=== PATIENT | male | born 1980 | race Two or more races ===

== ENCOUNTER 2018-12-29 19:54 | Emergency (ER) | payer OTHER ==
[~2018-12-29] VITALS: Ht 170.2 cm; Wt 72.6 kg
--- NOTE | 2018-12-29 19:57 | NUR ---
ED Nurse Note: pt brought in by [employer] for medical clearance, pt states he doesn't have any pain at this time, vss, resp even and unlabored on RA, will cont monitor.
[2018-12-29 19:59] VITALS: BP 113/67
--- NOTE | 2018-12-29 20:06 | NUR ---
ED Nurse Note: pt reports he initially had pain in wrists from handcuff. mild reddened area noted but no open wound, skin intact.
[2018-12-29] MEDS ORDERED: IBUPROFEN600 MG ORAL (20:16)
[2018-12-29 21:15] VITALS: BP 115/76
--- NOTE | 2018-12-29 21:15 | NUR ---
ED Nurse Note: pt cleared to be d/c per ERMD, pt discharge and aftercare instruction provided w/ prescription, pt education done via discussion and handout, pt advised to follow up with [facility] or return to ed if changes in condition, vss, ambulatory w/ steady gait, left w/ all belongings accompanied by [employer].
--- NOTE | 2018-12-29 21:29 | Emergency Room Report ---
History of Present Illness General Chief Complaint: Medical Clearance Source: Patient, EMS Present Illness HPI Patient is a 38-year-old male presented after increased bilateral upper extremity pain. Patient reports having increased pain to the both wrist as well as to the right shoulder. Patient had reportedly recently been using amphetamine. He was currently in police custody. Patient states that he was taken to the ground and subsequently developed pain to the shoulders. He denies any loss of consciousness. He denies any neck discomfort. He reports having pain with movement to both shoulders. He states that he had some increased pain to the hands due to handcuffs. Allergies: Coded Allergies: No Known Allergies (Unverified , 12/29/18) Patient History Reviewed Nursing Documentation: PMH: Agreed; PSxH: Agreed Nursing Documentation-PMH Past Medical History: No Stated History Review of Systems All Other Systems: negative except mentioned in HPI Physical Exam Vital Signs Date Time Temp Pulse Resp B/P (MAP) Pulse Ox O2 Delivery O2 Flow Rate FiO2 12/29/18 19:47 98.8 108 16 113/67 (82) 98 Room Air General Appearance: well appearing, no apparent distress, alert, GCS 15 Head: normocephalic, atraumatic ENT: hearing grossly normal, normal voice Neck: full range of motion, supple Respiratory: no respiratory distress, speaking full sentences Cardiovascular #1: normal inspection Musculoskeletal: decreased range of mation - bilateral shoulders Neurologic: normal inspection, alert, oriented x3, responsive, gravity meter observer III-XII nml as tested, normal gait Psychiatric: mood/affect normal Skin: no rash, abrasions Medical Decision Making Diagnostic Impression: Primary Impression: Shoulder pain, bilateral Additional Impression: Abrasion ER Course Patient is a 38-year-old male brought in by police for medical clearance. Differential diagnosis include was not limited to fracture, contusion, abrasions among others. X-ray imaging of the right shoulder showed normal bony alignment without evident fracture. X-ray imaging of both wrist 3 views interpreted by me showed normal bony alignment without a fracture. Patient was noted to have normal movement to both upper extremities. He was noted to have some slight decreased range of motion to both shoulders consistent with some chronic rotator cuff tendinitis. Patient was medically cleared for booking. Patient is advised to return if any worsening condition. Last Vital Signs Date Time Temp Pulse Resp B/P (MAP) Pulse Ox O2 Delivery O2 Flow Rate FiO2 6/30/19 21:15 97.4 99 16 115/76 98 Room Air Status: improved Disposition: D/C TO LAW ENFORCEMENT IN [facility]UST Condition: Stable Scripts Ibuprofen* (MOTRIN*) 600 Mg Tablet 600 MG ORAL Q8H PRN for For Pain, #30 TAB 0 Refills Prov: Cristóbal Vega MD 12/29/18 Departure Forms: [facility] Clearance Patient Instructions: Shoulder Pain, [id number]-Leve Cristóbal Vega MD Dec 29, 2018 21:29
--- NOTE | 2018-12-30 11:24 | Diagnostic Imaging Report ---
Indication: Right shoulder pain Technique: 3 views of the right shoulder Comparison: none Findings: No acute fractures. No dislocations. The joint spaces are preserved Impression: Negative
--- NOTE | 2018-12-30 15:08 | Diagnostic Imaging Report ---
Clinical Indication:Right wrist pain Technique: 3 views of the right wrist Comparison: None Findings: No acute fractures. No dislocations. The joint spaces are preserved. Impression: Negative
--- NOTE | 2018-12-30 15:09 | Diagnostic Imaging Report ---
Clinical Indication:Left wrist pain Technique: 3 views of the left wrist Comparison: None Findings: No acute fractures. No dislocations. The joint spaces are preserved. Impression: Negative
== END 2018-12-29 21:15 ==
LOC: EDBD 19:54 → EMR 21:00
DX: M25.512 Pain in left shoulder (principal); M25.511 Pain in right shoulder; T14.8XXA Other injury of unspecified body region, initial encounter; X58.XXXA Exposure to other specified factors, initial encounter; Y92.9 Unspecified place or not applicable; M25.532 Pain in left wrist; M25.531 Pain in right wrist
CPT/HCPCS: 99283